=== PATIENT | female | born 1970 | race Caucasian/White ===

== ENCOUNTER 2017-04-04 19:51 | Emergency (ER) | payer OTHER ==
[~2017-04-04] VITALS: Ht 170.2 cm; Wt 85.5 kg
[2017-04-04 21:04] VITALS: BP 133/79
[2017-04-04] MEDS ORDERED: LEVAQUIN500 MG PO (21:37)
== END 2017-04-04 21:54 | disposition home or self-care (01) ==
LOC: EME 19:51
DX: L03.116 Cellulitis of left lower limb (principal); S71.132D Puncture wound without foreign body, left thigh, subsequent encounter; W60.XXXD Contact with nonvenomous plant thorns and spines and sharp leaves, subsequent encounter
CPT/HCPCS: 87070; 87075; 87205; 99281; 99283